=== PATIENT | female | born 2000 | race Two or more races ===

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

== ENCOUNTER 2020-12-13 17:27 | Emergency (ER) | payer OTHER ==
[2020-12-13 17:41] VITALS: BP 116/66; PULSE 104; TEMP 98; BMI 21.7
[2020-12-13] MEDS ORDERED: KETOROLAC TROMETHAMINE 15 MG/ML VIAL IM ONE (18:28)
[2020-12-13] MEDS ORDERED: LACTATED RINGERS SOLUTION 1,000 ML/1,000 ML INFUS.BAG IV STA (18:34)
[2020-12-13 19:17] LABS: BASO % 0.7 % (0-2.0); EOS % 0.5 % (0-4.5); HEMATOCRIT 37.9 % (32.4-45.2); LYMPH % 26.9 % (8-40); MCH 30.9 pg (25.7-33.7); MCHC 34.2 g/dl (32.0-36.0); MEAN CELL VOLUME 90.2 fl (80-96); MEAN PLT VOLUME 9.7 fl (7.5-11.1); MONO % 6.3 % (3.8-10.2); NEUT % 65.6 % (42.8-82.8); PLATELET COUNT 300 10^3/uL (134-434); RDW 12.6 % (11.6-15.6); WHITE BLOOD COUNT 8.9 K/mm3 (4.0-10.0)
[2020-12-13 19:31] LABS: CALCIUM 9.8 mg/dL (8.5-10.1)
[2020-12-13 19:35] LABS: CREATININE 0.9 mg/dL (0.55-1.3)
[2020-12-13 19:48] LABS: EPI CELLS 6 /uL (0-25.1); HCG,QUALITATIVE URINE Negative; HYALINE CASTS 0 /uL (0-3.1); PH,URINE 7.5 (5.0-8.0); URINE APPEARANCE CLEAR; URINE BACTERIA 57 /uL (0-1359); URINE BILIRUBIN NEGATIVE (NEGATIVE); URINE COLOR YELLOW; URINE GLUCOSE (UA) NEGATIVE (NEGATIVE); URINE KETONE NEGATIVE (NEGATIVE); URINE LEUK ESTERASE 1+ (NEGATIVE); URINE NITRITE NEGATIVE (NEGATIVE); URINE PROTEIN NEGATIVE (NEGATIVE); URINE RBC 1584 /uL (0-23.9); URINE UROBILINOGEN 0.2 mg/dL (0.2-1.0); URINE WBC 21 /uL (0-25.8)
== END 2020-12-13 22:06 | disposition home or self-care (01) ==
LOC: JER 17:27
PROC: 3E023GC Introduction of Other Therapeutic Substance into Muscle, Percutaneous Approach (ICD-10-PCS; principal; 2020-12-13)
PROC: 3E0337Z Introduction of Electrolytic and Water Balance Substance into Peripheral Vein, Percutaneous Approach (ICD-10-PCS; principal; 2020-12-13)
DX: R25.2 Cramp and spasm (principal)
CPT/HCPCS: 36415; 80048; 81003; 84703; 85025; 86850; 86900; 86901; 99284-25

== ENCOUNTER 2021-09-07 16:04 | Emergency (ER) | payer OTHER ==
[2021-09-07 16:27] VITALS: BP 131/81; PULSE 103; TEMP 98.4; BMI 22.6
[2021-09-07] MEDS ORDERED: ACETAMINOPHEN 1000 MG/100 ML BAG IVPB ONE (17:17)
[2021-09-07] MEDS ORDERED: ONDANSETRON 4 MG/2 ML VIAL IVPUSH ONE (17:17)
[2021-09-07] MEDS ORDERED: SODIUM CHLORIDE 1,000 ML IV STA (17:17)
[2021-09-07] MEDS ORDERED: ONDANSETRON 4 MG/2 ML VIAL ONE (17:46)
[2021-09-07] MEDS ORDERED: ACETAMINOPHEN INJECTION 100 ML IVPB ONE (17:46)
[2021-09-07 18:20] LABS: BASO % 0.8 % (0-2.0); EOS % 0.1 % (0-4.5); HEMATOCRIT 44.8 % (32.4-45.2); HEMOGLOBIN 14.6 GM/dL (10.7-15.3); LYMPH % 28.7 % (8-40); MCH 30.2 pg (25.7-33.7); MCHC 32.6 g/dl (32.0-36.0); MEAN CELL VOLUME 92.6 fl (80-96); MEAN PLT VOLUME 9.8 fl (7.5-11.1); MONO % 5.4 % (3.8-10.2); PLATELET COUNT 341 10^3/uL (134-434); RBC 4.84 M/mm3 (3.60-5.2); RDW 13.5 % (11.6-15.6); WHITE BLOOD COUNT 8.3 K/mm3 (4.0-10.0)
[2021-09-07 18:36] LABS: CHLORIDE 99 mmol/L (98-107)
[2021-09-07 18:38] LABS: CALCIUM 9.8 mg/dL (8.5-10.1)
[2021-09-07 18:39] LABS: BLOOD UREA NITROGEN 9.8 mg/dL (7-18); CO2 26 mmol/L (21-32); GLUCOSE,RANDOM 72 mg/dL (74-106)
[2021-09-07 18:42] LABS: CREATININE 0.7 mg/dL (0.55-1.3)
[2021-09-07 18:43] LABS: TOT PROT 10.4 g/dl (6.4-8.2)
[2021-09-07 18:45] LABS: ALK PHOS 67 U/L (45-117)
[2021-09-07 20:26] LABS: EPI CELLS 17 /uL (0-25.1); HCG,QUALITATIVE URINE Negative; HYALINE CASTS 0 /uL (0-3.1); PH,URINE 7.5 (5.0-8.0); URINE APPEARANCE CLEAR; URINE BACTERIA 1148 /uL (0-1359); URINE BILIRUBIN NEGATIVE (NEGATIVE); URINE COLOR YELLOW; URINE GLUCOSE (UA) NEGATIVE (NEGATIVE); URINE KETONE TRACE (NEGATIVE); URINE LEUK ESTERASE TRACE (NEGATIVE); URINE NITRITE NEGATIVE (NEGATIVE); URINE PROTEIN NEGATIVE (NEGATIVE); URINE RBC 7 /uL (0-23.9); URINE UROBILINOGEN 0.2 mg/dL (0.2-1.0); URINE WBC 12 /uL (0-25.8)
[2021-09-07 20:42] LABS: CHLORIDE 106 mmol/L (98-107); SODIUM 135 mmol/L (136-145)
[2021-09-07 20:44] LABS: CALCIUM 8.8 mg/dL (8.5-10.1)
[2021-09-07 20:45] LABS: ALBUMIN 3.6 g/dl (3.4-5.0); BLOOD UREA NITROGEN 8.9 mg/dL (7-18); CO2 27 mmol/L (21-32); GLUCOSE,RANDOM 104 mg/dL (74-106)
[2021-09-07 20:48] LABS: CREATININE 0.7 mg/dL (0.55-1.3); SGOT/AST 45 U/L (15-37); SGPT/ALT 28 U/L (13-61)
[2021-09-07 20:50] LABS: BILIRUBIN,TOTAL 0.4 mg/dL (0.2-1)
[2021-09-07 20:51] LABS: ALK PHOS 59 U/L (45-117)
[2021-09-07 20:59] LABS: ANION GAP 3 MMOL/L (8-16); TOT PROT 7.5 g/dl (6.4-8.2)
[2021-09-07] MEDS ORDERED: KETOROLAC TROMETHAMINE 30 MG/1 ML VIAL IVPUSH ONE (21:05)
[2021-09-07] MEDS ORDERED: ACETAMINOPHEN/CAFFEINE/BUTALBITAL 1 TAB PO ONE (21:05)
[2021-09-07] MEDS ORDERED: KETOROLAC TROMETHAMINE 30 MG/1 ML VIAL ONE (21:10)
[2021-09-07] MEDS ORDERED: ACETAMINOPHEN/CAFFEINE/BUTALBITAL 1 TAB ONE (21:10)
[2021-09-07 21:57] LABS: CALCIUM 9.1 mg/dL (8.5-10.1)
[2021-09-07 21:58] LABS: BLOOD UREA NITROGEN 7.6 mg/dL (7-18)
[2021-09-07 22:01] LABS: CREATININE 0.7 mg/dL (0.55-1.3)
== END 2021-09-07 22:19 | disposition home or self-care (01) ==
LOC: JER 16:04
PROC: 3E033GC Introduction of Other Therapeutic Substance into Peripheral Vein, Percutaneous Approach (ICD-10-PCS; principal; 2021-09-07)
DX: R51.9 Headache, unspecified (principal)
CPT/HCPCS: 36415; 70450-TC; 80048; 80053; 81003; 84703; 85025; 99285-25

== ENCOUNTER 2022-09-01 07:24 | Emergency (ER) | payer OTHER ==
[2022-09-01 07:40] VITALS: BP 126/91; PULSE 94; RESP 16; TEMP 97.9; BMI 22.3
[2022-09-01] MEDS ORDERED: ACETAMINOPHEN 325 MG TABLET (FP) PO ONE (08:19)
[2022-09-01] MEDS ORDERED: ACETAMINOPHEN 325 MG TABLET (FP) ONE (08:20)
[2022-09-01] MEDS ORDERED: KETOROLAC TROMETHAMINE 30 MG/1 ML VIAL ONE (09:04)
[2022-09-01] MEDS ORDERED: KETOROLAC TROMETHAMINE 30 MG/1 ML VIAL IM ONE (09:09)
== END 2022-09-01 09:36 | disposition home or self-care (01) ==
LOC: JER 07:24
PROC: 3E0233Z Introduction of Anti-inflammatory into Muscle, Percutaneous Approach (ICD-10-PCS; principal; 2022-09-01)
DX: R51.9 Headache, unspecified (principal); R20.2 Paresthesia of skin; R11.10 Vomiting, unspecified
CPT/HCPCS: 84703; 99284-25